=== PATIENT | male | born 1955 | race African-American/Black ===

== ENCOUNTER 2020-02-18 04:02 | Emergency (ER) | payer OTHER ==
[~2020-02-18] VITALS: Ht 165.1 cm; Wt 59.4 kg
[2020-02-18] MEDS ORDERED: ATORVASTATIN CA10 MG (04:47)
[2020-02-18] MEDS ORDERED: LISINOPRIL5 MG (04:47)
[2020-02-18] MEDS ORDERED: JANUMET 50-5001 EACH (04:47)
[2020-02-18] MEDS ORDERED: KETO10TA2 PO (13:56)
[2020-02-18] MEDS ORDERED: VOLTAREN100 GM TOP (13:56)
== END 2020-02-18 14:13 | disposition home or self-care (01) ==
LOC: ER 04:02
DX: K40.90 Unilateral inguinal hernia, without obstruction or gangrene, not specified as recurrent (principal); M25.551 Pain in right hip; M25.511 Pain in right shoulder; Z20.828 Contact with and (suspected) exposure to other viral communicable diseases

== ENCOUNTER 2020-02-25 12:26 | Outpatient (CLI) | payer OTHER ==
[~2020-02-25 12:26] MED LIST: ATORVASTATIN CA10 MG; JANUMET 50-5001 EACH; KETO10TA2 PO; LISINOPRIL5 MG; VOLTAREN100 GM TOP
== END 2020-02-25 12:55 | disposition home or self-care (01) ==
LOC: RAD 12:26
PROVIDERS: ATTEND Orthopaedic Surgery Hand Surgery
DX: M25.531 Pain in right wrist (principal)